=== PATIENT | male | born 1940 | race Caucasian/White ===

== ENCOUNTER 2016-05-23 20:40 | Emergency (ER) ==
--- NOTE | 2016-05-23 21:19 | PROVIDER DOCUMENTATION ---
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 Pt reports that he fell at home, but denies hitting his head, loc, sob, or any pain other than mild L hip tenderness. EMS reports that pt was able to stand and get onto the stretcher before being brought to ER. On exam, pt has left lower extremity weakness, but son-in-law reports pt has hx of L sided weakness. Pt also has hx of schizophrenia and a lazy eye. 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 worse with: exercise, movement Associated Symptoms: reports: joint pain (L hip), trouble walking. denies: chest pain, dizziness, fatigue, fever/chills, headaches, muscle aches, nausea, shortness of breath, syncope, vomiting, weakness Review of Systems - Adult - REVIEW OF SYSTEMS - ADULT Constitutional: denies: chills, fever, fatique Eyes: reports: no symptoms reported Ears, Nose, Mouth & Throat: reports: no symptoms reported Cardiovascular: reports: no symptoms reported Respiratory: reports: no symptoms reported Gastrointestinal: reports: no symptoms reported Genitourinary: reports: no symptoms reported Musculoskeletal: reports: joint pain (L hip), muscle aches (L hip), muscle weakness (L hip). denies: bone pain, back pain, frequent leg cramps, joint swelling, neck pain Integumentary: reports: no symptoms reported Neurological: reports: no symptoms reported Psychiatric: reports: no symptoms reported Endocrine: reports: no symptoms reported Hematologic/Lymphatic: reports: no symptoms reported Allergic/Immunologic: reports: no symptoms reported All Other Systems: Reviewed and Negative Past History - Adult - PAST MEDICAL HISTORY-ADULT Review of Records: reports: Nursing Assessment Review, Medications Reviewed - IMMUNIZATION STATUS Childhood Immunizations: See Nurse Assessment Flu Vaccine: See Nurse Assessment Physical Exam-General - PHYSICAL EXAM-ADULT Initial Vital Signs Reviewed: Yes - CONSTITUTIONAL General Appearance: appears well, alert, mild distress - HEAD, EARS, NOSE, MOUTH & THROAT HENMT: normocephalic/atraumatic, moist mucous membranes - NECK Neck: non-tender, full range of motion, supple - RESPIRATORY Respiratory: chest non-tender, lungs clear, normal breath sounds - CARDIOVASCULAR Cardiovascular: normal peripheral pulses, regular rate, rhythm - GASTROINTESTINAL (ABDOMEN) Abdominal Exam: normal bowel sounds, non tender, soft - LYMPHATIC Lymphatic: no adenopathy - MUSCULOSKELETAL Back Exam: no CVA tenderness, no vertebral tenderness Extremity: normal range of motion, non-tender, normal gait, other (3/5 L lower extremity motor strength; 5/5 R sided lower extremity motor strength) - SKIN Integumentary: normal color, normal turgor, warm/dry - NEUROLOGIC Neurologic: grossly normal, no motor/sensory deficits - PSYCHIATRIC Psych/Mental Status: normal mood/affect, normal thought content, normal thought process, oriented x 3 Progress - PLAN OF CARE/RESULTS Progress/Plan/Lab Results: Vital Signs - 24 hr 05/23/16 21:15 Temperature 97.6 F Pulse Rate 100 H Respiratory 21 Rate Blood Pressure 172/91 O2 Sat by Pulse 96 Oximetry Orders Category Date Time Status Cardiac Monitoring DIRECTED Care 05/23/16 20:56 Active Finger Stick Blood Sugar (ED) DIRECTED Care 05/23/16 20:56 Active Oxygen Therapy- ED Nursing DIRECTED Care 05/23/16 20:56 Active Saline Loc NOW Care 05/23/16 20:56 Active CHEST-2 VIEWS [RAD] Stat Exams 05/23/16 20:58 Taken HEAD/C-SPINE W/O CONTRAST [CT] Stat Exams 05/23/16 20:57 Taken PELVIS [RAD] Stat Exams 05/23/16 20:57 Taken ALCOHOL BLOOD Stat Lab 05/23/16 20:01 Completed CBC WITH ELECTRONIC DIFF [HEME] Stat Lab 05/23/16 20:01 Completed COMPREHENSIVE METABOLIC PANEL [CHEM] Stat Lab 05/23/16 20:01 Completed LACTATE, PLASMA [CHEM] Stat Lab 05/23/16 20:01 Completed PROTIME WITH INR [COAG] Stat Lab 05/23/16 20:01 Completed PTT [COAG] Stat Lab 05/23/16 20:01 Completed TROPONIN T Stat Lab 05/23/16 20:01 Completed URINALYSIS W/POSS RFLX CULT [URINALYSIS] Stat Lab 05/23/16 20:56 Uncollected URINE DRUG SCREEN Stat Lab 05/23/16 20:56 Uncollected Pulse Oximetry Stat Oth 05/23/16 20:56 Active EKG [EKG] Stat Ther 05/23/16 20:56 Ordered Laboratory Tests 05/23/16 05/23/16 05/23/16 20:01 20:01 20:01 WBC 9.09 RBC 4.43 L Hgb 14.5 Hct 40.4 L MCV 91.2 MCH 32.7 H MCHC 35.9 RDW Std Deviation 13.1 Plt Count 251 MPV 10.3 Immature Gran % (Auto) 0.0 Neut % (Auto) 81.9 H Lymph % (Auto) 4.7 L [place] % (Auto) 9.5 H Eos % (Auto) 3.3 Baso % (Auto) 0.6 Immature Gran # (Auto) 0.00 Neut # (Auto) 7.45 H Lymph # (Auto) 0.43 L [place] # (Auto) 0.86 H Eos # (Auto) 0.30 Baso # (Auto) 0.05 PT INR PTT (Actin FS) Sodium 136 Potassium 3.6 Chloride 98 Carbon Dioxide 24 L Anion Gap 14 BUN 17 Creatinine 1.2 Estimated GFR/1.73 m2 59 BUN/Creatinine Ratio 14 Glucose 109 H Calculated Osmolality 274 Calcium 9.2 Total Bilirubin 0.36 AST 27 ALT 20 Alkaline Phosphatase 70 Troponin T Total Protein 7.2 Albumin 4.1 Globulin 3.1 Albumin/Globulin Ratio 1.3 Plasma Lactate Plasma/Serum Ethyl Alc 05/23/16 05/23/16 05/23/16 20:01 20:01 20:01 WBC RBC Hgb Hct MCV MCH MCHC RDW Std Deviation Plt Count MPV Immature Gran % (Auto) Neut % (Auto) Lymph % (Auto) [place] % (Auto) Eos % (Auto) Baso % (Auto) Immature Gran # (Auto) Neut # (Auto) Lymph # (Auto) [place] # (Auto) Eos # (Auto) Baso # (Auto) PT 10.8 INR 1.02 PTT (Actin FS) 27.4 Sodium Potassium Chloride Carbon Dioxide Anion Gap BUN Creatinine Estimated GFR/1.73 m2 BUN/Creatinine Ratio Glucose Calculated Osmolality Calcium Total Bilirubin AST ALT Alkaline Phosphatase Troponin T < 0.010 Total Protein Albumin Globulin Albumin/Globulin Ratio Plasma Lactate 1.0 Plasma/Serum Ethyl Alc Laboratory Tests 05/23/16 05/23/16 05/23/16 20:01 20:01 20:01 WBC 9.09 RBC 4.43 L Hgb 14.5 Hct 40.4 L MCV 91.2 MCH 32.7 H MCHC 35.9 RDW Std Deviation 13.1 Plt Count 251 MPV 10.3 Immature Gran % (Auto) 0.0 Neut % (Auto) 81.9 H Lymph % (Auto) 4.7 L [place] % (Auto) 9.5 H Eos % (Auto) 3.3 Baso % (Auto) 0.6 Immature Gran # (Auto) 0.00 Neut # (Auto) 7.45 H Lymph # (Auto) 0.43 L [place] # (Auto) 0.86 H Eos # (Auto) 0.30 Baso # (Auto) 0.05 PT INR PTT (Actin FS) Sodium 136 Potassium 3.6 Chloride 98 Carbon Dioxide 24 L Anion Gap 14 BUN 17 Creatinine 1.2 Estimated GFR/1.73 m2 59 BUN/Creatinine Ratio 14 Glucose 109 H Calculated Osmolality 274 Calcium 9.2 Total Bilirubin 0.36 AST 27 ALT 20 Alkaline Phosphatase 70 Troponin T Total Protein 7.2 Albumin 4.1 Globulin 3.1 Albumin/Globulin Ratio 1.3 Plasma Lactate Urine Source Urine Color Urine Turbidity Urine pH Ur Specific [place]ad[place] Urine Protein Ur Glucose (Stick) Ur Ketones (Stick) Urine Blood Urine Nitrite Urine Bilirubin Urobilinogen Dipstick Urine Leukocytes Urine WBC (Auto) Urine RBC (Auto) U Epithel Cells (Auto) Urine Bacteria (Auto) Urine Opiates Screen Ur Oxycodone Screen Ur Methadone, Qual Ur Barbiturates Screen Ur Phencyclidine Scrn Ur Amphetamines Screen U Benzodiazepines Scrn Urine Cocaine Screen U Cannabinoids Screen Plasma/Serum Ethyl Alc 05/23/16 05/23/16 05/23/16 20:01 20:01 20:01 WBC RBC Hgb Hct MCV MCH MCHC RDW Std Deviation Plt Count MPV Immature Gran % (Auto) Neut % (Auto) Lymph % (Auto) [place] % (Auto) Eos % (Auto) Baso % (Auto) Immature Gran # (Auto) Neut # (Auto) Lymph # (Auto) [place] # (Auto) Eos # (Auto) Baso # (Auto) PT 10.8 INR 1.02 PTT (Actin FS) 27.4 Sodium Potassium Chloride Carbon Dioxide Anion Gap BUN Creatinine Estimated GFR/1.73 m2 BUN/Creatinine Ratio Glucose Calculated Osmolality Calcium Total Bilirubin AST ALT Alkaline Phosphatase Troponin T < 0.010 Total Protein Albumin Globulin Albumin/Globulin Ratio Plasma Lactate 1.0 Urine Source Urine Color Urine Turbidity Urine pH Ur Specific [place] Urine Protein Ur Glucose (Stick) Ur Ketones (Stick) Urine Blood Urine Nitrite Urine Bilirubin Urobilinogen Dipstick Urine Leukocytes Urine WBC (Auto) Urine RBC (Auto) U Epithel Cells (Auto) Urine Bacteria (Auto) Urine Opiates Screen Ur Oxycodone Screen Ur Methadone, Qual Ur Barbiturates Screen Ur Phencyclidine Scrn Ur Amphetamines Screen U Benzodiazepines Scrn Urine Cocaine Screen U Cannabinoids Screen Plasma/Serum Ethyl Alc 05/23/16 05/23/16 22:22 22:22 WBC RBC Hgb Hct MCV MCH MCHC RDW Std Deviation Plt Count MPV Immature Gran % (Auto) Neut % (Auto) Lymph % (Auto) [place] % (Auto) Eos % (Auto) Baso % (Auto) Immature Gran # (Auto) Neut # (Auto) Lymph # (Auto) [place] # (Auto) Eos # (Auto) Baso # (Auto) PT INR PTT (Actin FS) Sodium Potassium Chloride Carbon Dioxide Anion Gap BUN Creatinine Estimated GFR/1.73 m2 BUN/Creatinine Ratio Glucose Calculated Osmolality Calcium Total Bilirubin AST ALT Alkaline Phosphatase Troponin T Total Protein Albumin Globulin Albumin/Globulin Ratio Plasma Lactate Urine Source CLEAN CATCH Urine Color YELLOW Urine Turbidity CLEAR Urine pH 7.0 Ur Specific W[place]ley 1.007 Urine Protein NEGATIVE Ur Glucose (Stick) NEGATIVE Ur Ketones (Stick) NEGATIVE Urine Blood NEGATIVE Urine Nitrite NEGATIVE Urine Bilirubin NEGATIVE Urobilinogen Dipstick NORMAL Urine Leukocytes NEGATIVE Urine WBC (Auto) <10 Urine RBC (Auto) <10 U Epithel Cells (Auto) <10 Urine Bacteria (Auto) NEGATIVE Urine Opiates Screen NONE DETECTED Ur Oxycodone Screen NONE DETECTED Ur Methadone, Qual NONE DETECTED Ur Barbiturates Screen NONE DETECTED Ur Phencyclidine Scrn NONE DETECTED Ur Amphetamines Screen NONE DETECTED U Benzodiazepines Scrn NONE DETECTED Urine Cocaine Screen NONE DETECTED U Cannabinoids Screen NONE DETECTED Plasma/Serum Ethyl Alc - XRAY 1 XRAY: Bilateral XRAY Study: Chest Impression: See EMR Report XRAY Interpretation: No acute findings per Dr. Turner - CT/MRI 1 CT Study: Pelvis (Negative) Impression: See EMR Report CT Results: Negative per Dr. Turner 2 CT Study: Cervical Spine, Head Impression: See EMR Report (Head: mild chronic-appearing microvascular ischemic changes; No evidence on intracranial injury. Cspin: Substantial degenerative disease; No fx, no subluxation) CT Results: See report Departure - Departure Time of Disposition Order: 22:20 DIAGNOSIS: Chronic mental illness Fall Qualifiers: Encounter type: sequela Qualified Code(s): W19.XXXS - Unspecified fall, sequela Disposition: HOME 01 Certified Medical Emergency: Emergent Condition: Stable Additional Instructions: Follow up with your primary care doctor. ED Follow Up Instructions: You have been treated by a care provider in the Emergency Department. These instructions are being provided to you so you can have an understanding of how to care for yourself upon discharge. Upon discharge from the Emergency Department, you are responsible for making arrangements for follow-up care by a physician of your choice. Take all prescribed medications as directed. Return to the Emergency Department immediately for any new or worsening symptoms. You may call the Physician Referral phone number at [phone] to obtain a list of Physicians who are taking new patients. Referrals: None,PCP [Primary Care Provider] - Attestation - Scribe Verification/Attestation Scribe:: Reginald Pierre Acting as Scribe for:: Gregory Turner Scribe documention review:: This chart was documented by a scribe and accurately reflects the service the provider performed and the decisions made by the provider.
[2016-05-23 21:48] LABS: MANUAL DIFF NEEDED? NO
[2016-05-23 21:53] LABS: BASO% 0.6 % (0.0-0.8); EOS% 3.3 % (0.0-10.0); HEMATOCRIT 40.4 % (42.0-52.0); HEMOGLOBIN 14.5 g/dL (14.0-18.0); LYMPH# 0.43 X1000 (1.2-3.4); LYMPH% 4.7 % (20.5-51.1); MCH 32.7 PG (27-31); MCHC 35.9 g/dL (33-37); MCV 91.2 FL (81-99); MONO# 0.86 X1000 (0.11-0.59); MONO% 9.5 % (1.7-9.3); MPV 10.3 FL (7.4-10.4); NEUT% 81.9 % (42.2-75.2); PLT 251 X1000 (130-400); RBC 4.43 XMIL (4.7-6.1)
[2016-05-23 21:59] LABS: INR 1.02; PROTIME 10.8 Seconds (9.2-11.7); PTT 27.4 Seconds (22.0-36.0)
[2016-05-23 22:13] LABS: ALBUMIN 4.1 g/dL (3.5-5.0); CALCIUM 9.2 mg/dL (8.8-10.2); POTASSIUM 3.6 mmol/L (3.5-5.1); TOTAL BILIRUBIN 0.36 mg/dL (0.20-1.00); TOTAL PROTEIN 7.2 g/dL (6.3-8.3)
[2016-05-23 22:28] LABS: URINE CULTURE NEEDED? NO; URINE MICRO REVIEW NEEDED? NO; URINE SOURCE CLEAN CATCH
[2016-05-23 22:34] LABS: BILIRUBIN URINE NEGATIVE (NEGATIVE); BLOOD URINE NEGATIVE (NEGATIVE); COLOR YELLOW; GLUCOSE URINE NEGATIVE (NEGATIVE); LEUKOCYTES URINE NEGATIVE (NEGATIVE); NITRITE URINE NEGATIVE (NEGATIVE); PROTEIN URINE NEGATIVE (NEGATIVE); SP GRAVITY URINE 1.007; TURBIDITY URINE CLEAR (CLEAR); UR EPITHELIAL CELLS <10 /HPF (<10); URINE BACTERIA NEGATIVE /HPF; URINE RBC <10 /HPF (<10); URINE WBC <10 /HPF (<10); UROBILINOGEN URINE NORMAL (NORMAL)
[2016-05-23 22:41] LABS: UR AMPHETAMINES QUAL NONE DETECTED (NONE DETECT); UR BARBITUATES QUAL NONE DETECTED (NONE DETECT); UR BENZODIAZEPIN QUAL NONE DETECTED (NONE DETECT); UR CANNABINOIDS QUAL NONE DETECTED (NONE DETECT); UR COCAINE QUAL NONE DETECTED (NONE DETECT); UR METHADONE QUAL NONE DETECTED (NONE DETECT); UR OPIATES QUAL NONE DETECTED (NONE DETECT); UR OXYCODONE QUAL NONE DETECTED (NONE DETECT); UR PCP QUAL NONE DETECTED (NONE DETECT)
[2016-05-23 23:11] VITALS: BP 176/95
--- NOTE | 2016-05-24 00:27 | Diag Imaging Result Document ---
PROCEDURE NAME: HEAD/C-SPINE W/O CONTRAST - 05/23/2016 CT BRAIN AND CERVICAL SPINE WITHOUT: TECHNIQUE: Dose reduction technique not used. FINDINGS: No parenchymal hemorrhage. No epidural or subdural hematoma. No subarachnoid hemorrhage. No skull fracture. There are chronic microvascular ischemic changes. No mass identified on this noncontrasted exam. No sinus opacification. No air-fluid levels. IMPRESSION: 1. No hemorrhage. No injury. 2. Chronic microvascular ischemic changes. CT CERVICAL SPINE WITHOUT: FINDINGS: Moderate degenerative changes in the mid and lower cervical spine. These are most pronounced from C4 to the top of C7. No precervical soft tissue swelling. No subluxation. No fracture. IMPRESSION: 1. No acute bony injury. 2. Moderate degenerative changes. A preliminary report was given at 9:48 p.m.
--- NOTE | 2016-05-24 06:58 | Diag Imaging Result Document ---
PROCEDURE NAME: CHEST-2 VIEWS - 05/23/2016 FRONTAL AND LATERAL CHEST, TWO VIEWS: FINDINGS: The lungs are well expanded. No contusions or pneumothoraces. The mediastinum is not widened. No pleural effusions. No compressed vertebra. The heart is not enlarged. IMPRESSION: I do not identify an injury.
--- NOTE | 2016-05-24 07:38 | Diag Imaging Result Document ---
PROCEDURE NAME: PELVIS - 05/23/2016 PELVIS, SINGLE VIEW: FINDINGS: No fracture. No dislocation. IMPRESSION: No acute bony injury.
== END 2016-05-23 23:10 | disposition home or self-care (01) ==
LOC: EDBD → ED 20:40
DX: F99 Mental disorder, not otherwise specified (principal); R94.09 Abnormal results of other function studies of central nervous system; M47.9 Spondylosis, unspecified; M25.552 Pain in left hip; M62.81 Muscle weakness (generalized); R26.2 Difficulty in walking, not elsewhere classified; M79.1 Myalgia; F20.9 Schizophrenia, unspecified; Z79.899 Other long term (current) drug therapy
CPT/HCPCS: 70450; 71020; 72125; 72170; 80053; 81001; 82948; 83605; 84484; 85025; 85610; 85730; 93005; G0480

== ENCOUNTER 2016-09-10 14:18 | Inpatient (IN) ==
[2016-09-10] MEDS ORDERED: TYLENOL PO PRN (18:21)
[2016-09-10] MEDS: D5 1/2 NS + KCL 10 MEQ 1,000 ML IV SCH (20:00)
--- NOTE | 2016-09-10 20:19 | HISTORY AND PHYSICAL ---
HISTORY OF PRESENT ILLNESS: Mr. 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 He was taken care of by his sister who ended up in a long-term. He is now taken care of by a nephew. Mr. Barraza had has not been doing well. His confusion is worse. He is having frequent falls at home. He has been bruising badly. He needs 24 hour attention at home which they cannot give. The family says he is falling at least 3-4 times a day. Hence he is admitted for further management. Other details of personal, past, and family history reveals prostate carcinoma for which he had surgery by Dr. Mcnally and he is actively followed by Dr. Mcnally. REVIEW OF SYSTEMS: Unavailable. MEDICATIONS: Flomax 0.4 mg daily, naproxen 440 mg twice a day, and a multivitamin. PHYSICAL EXAMINATION: VITAL SIGNS: Temperature normal, pulse 78 per minute, respiratory rate 18 per minute, blood pressure 187/83. HEENT: Head normocephalic. PERRLA. Fundus examination could not be done. ENT examination unremarkable. NECK: Supple. JVP normal. There is no evidence of lymphadenopathy or thyroid enlargement. GENERAL: No evidence of pedal edema, calf tenderness, anemia, cyanosis or clubbing. VASCULAR: Pedal pulses are well felt. BREASTS: Normal. CHEST: Normal on inspection. LUNGS: Clear on auscultation. PMI in the normal position. HEART: Sounds normal. No murmur, gallop or rub noted. ABDOMEN: Nondistended. Hernial orifices normal. No guarding, rigidity, free fluid, masses, or organomegaly. Bowel sounds normal. RECTAL EXAMINATION: Deferred. CENTRAL NERVOUS SYSTEM: Higher functions. The patient gets confused and disoriented. Cranial nerves are grossly normal. Motor and sensory examination are unremarkable except for hypotonia. Deep tendon reflexes are sluggish. Plantars downgoing. Skull and spine examination normal for age. No cerebellar signs or signs of meningeal irritation. LOCOMOTOR EXAMINATION: Unremarkable except for pain with movements of both knees as well as movement of the lumbosacral spine is painful. SKIN EXAMINATION: Reveals multiple bruises. The presence of dehydration reveals loss of skin turgor and dryness of mucous membranes. ASSESSMENT AND PLAN: Dehydration, frequent falls, degenerative arthritis of both knees, mental retardation mild with some increasing dementia now. We will get a CT scan and keep him on telemetry. I am going to check his orthostatic hypotension. We will get regular blood work. cc: Darrius Coleman MD
--- NOTE | 2016-09-10 22:25 | Diag Imaging Result Document ---
PROCEDURE NAME: HEAD W/O CONTRAST - 09/10/2016 STUDY: CT brain without contrast. COMPARISON: Compared to 05/23/2016. No parenchymal hemorrhage. No epidural or subdural hematoma. No subarachnoid hemorrhage. No skull fracture. There are chronic microvascular ischemic changes. No hydrocephalus. No mass identified on this noncontrasted exam. No sinus opacification. IMPRESSION: 1. No hemorrhage. No injury. 2. Chronic microvascular ischemic changes. A preliminary report was given at 9:06 p.m.
[2016-09-10] MEDS: ALEVE PO PRN (22:59)
--- NOTE | 2016-09-11 06:51 | EKG Report ---
Test Performed on : 09/11/2016 06:24:34 AM Test Reason : CP Blood Pressure : / mmHG Vent. Rate : 073 BPM Atrial Rate : 073 BPM P-R Int : 150 ms QRS Dur : 128 ms QT Int : 404 ms P-R-T Axes : 055 057 049 degrees QTc Int : 445 ms Normal sinus rhythm. Right bundle branch block Abnormal ECG When compared with ECG of 08-SEP-2016 20:47, aberrant conduction. is no longer present Confirmed by Atif Holt MD ([id number]) on 09/12/2016 12:06:16 PM
[2016-09-11 07:25] LABS: MANUAL DIFF NEEDED? NO
[2016-09-11 07:34] LABS: BASO% 0.5 % (0.0-0.8); EOS% 10.6 % (0.0-10.0); HEMATOCRIT 41.7 % (42.0-52.0); HEMOGLOBIN 14.5 g/dL (14.0-18.0); LYMPH# 1.47 X1000 (1.2-3.4); LYMPH% 26.1 % (20.5-51.1); MCH 32.4 PG (27-31); MCHC 34.8 g/dL (33-37); MCV 93.1 FL (81-99); MONO# 0.59 X1000 (0.11-0.59); MONO% 10.5 % (1.7-9.3); MPV 10.3 FL (7.4-10.4); NEUT% 52.3 % (42.2-75.2); PLT 273 X1000 (130-400); RBC 4.48 XMIL (4.7-6.1)
[2016-09-11 07:43] LABS: AGAP 13; ALBUMIN 3.7 g/dL (3.5-5.0); ALKALINE PHOSPHATASE 58 U/L (32-122); BUN 18 mg/dL (8-22); CALCIUM 9.1 mg/dL (8.8-10.2); CHLORIDE 101 mmol/L (98-107); COSMO 279; GOT 24 U/L (10-34); GPT 15 U/L (10-44); SODIUM 139 mmol/L (136-145); TCO2 25 mmol/L (25-35); TOTAL BILIRUBIN 0.42 mg/dL (0.20-1.00); TOTAL PROTEIN 6.3 g/dL (6.3-8.3)
[2016-09-11] MEDS: D5 1/2 NS + KCL 10 MEQ 1,000 ML IV SCH ×2 (08:10→17:03)
--- NOTE | 2016-09-11 09:22 | PROGRESS NOTE ---
DATE: 09/11/2016 SUBJECTIVE: Mr. Barraza had at least 1 or 2 falls after he came here. His lungs are clear. Heart sounds are normal. His CT scan has been unremarkable. We are watching him for his vital signs and the blood pressure changes. He has been on olanzapine for a long time and I personally do not feel like olanzapine is doing it. We will continue to watch him on telemetry. cc: Darrius Coleman MD
[2016-09-11] MEDS: CENTRUM SILVER PO SCH (09:35)
[2016-09-11] MEDS: FLOMAX PO SCH (09:35)
--- NOTE | 2016-09-11 11:12 | Diag Imaging Result Document ---
PROCEDURE NAME: CHEST-2 VIEWS - 09/11/2016 FRONTAL AND LATERAL CHEST, TWO VIEWS: COMPARISON: 09/08/2016. FINDINGS: Poor inspiratory effort. The heart is not enlarged. The vessels are not distended. No pneumonia. No pleural effusions. IMPRESSION: No acute abnormality.
--- NOTE | 2016-09-11 14:24 | PROGRESS NOTE ---
DATE: 09/11/2016 Mr. Barraza, according to the family, has been having frequent falls. His dementia is increasing. He has developed some mental status changes and he gets upset with family members very easily, having temper tantrums, and he definitely seems to have mental status change with some confusion. We will watch him on telemetry. The CT scan has been negative. cc: Darrius Coleman MD
[2016-09-12] MEDS: D5 1/2 NS + KCL 10 MEQ 1,000 ML IV SCH ×3 (08:10→20:49)
[2016-09-12] MEDS ORDERED: CALMOSEPTINE OINTMENT TOP PRN (08:42)
--- NOTE | 2016-09-12 09:32 | PROGRESS NOTE ---
DATE: 09/12/2016 SUBJECTIVE: Mr. Barraza is in about the same general condition. His mental status is slowly improving. He is still slightly more confused, but compared to yesterday he is better. His dehydration is improving. Overall condition is unchanged. We will see if we can get him a position at rehab when he does good. We will repeat electrolytes tomorrow. cc: Darrius Coleman MD
[2016-09-12] MEDS: FLOMAX PO SCH (09:53)
[2016-09-12] MEDS: CENTRUM SILVER PO SCH (09:53)
[2016-09-12] MEDS: ALEVE PO PRN (22:33)
[2016-09-13] MEDS: D5 1/2 NS + KCL 10 MEQ 1,000 ML IV SCH ×2 (08:49→21:36)
[2016-09-13] MEDS: CENTRUM SILVER PO SCH (08:50)
[2016-09-13] MEDS: FLOMAX PO SCH (08:50)
--- NOTE | 2016-09-13 10:31 | PROGRESS NOTE ---
DATE: 09/13/2016 Mr. Barraza is doing somewhat better. His dehydration has cleared. His mental status is much better. Today he is somewhat more oriented. No orthostatic hypotension. Telemetry does not show any arrhythmias. We will transfer him to [facility] for rehab. cc: Darrius Coleman MD
--- NOTE | 2016-09-13 12:46 | DISCHARGE SUMMARY ---
ADMISSION DATE: 09/10/2016 DISCHARGE DATE: 09/13/2016 Mr. Barraza, who is a 76-year-old white gentleman, was admitted with changes in mental status, frequent falls, possible syncope. LABORATORY DATA: In the hospital, chest x-ray was unremarkable. EKG revealed a right bundle- branch block. Normal sinus rhythm. CT scan of the brain or the head was unremarkable. It showed microvascular changes, otherwise it was negative overall. His lab data in the hospital, CBC was unremarkable. Electrolytes are normal. BUN 18, creatinine 1.1 indicating dehydration. He did have some dehydration when he came in. He was given IV fluids. The liver enzymes are normal. COURSE IN THE HOSPITAL: He was kept on telemetry. We did not reveal any evidence of arrhythmias. We had him checked for orthostatic hypotension which he did not have much evidence of orthostatic hypotension. Vital signs are stable. He is doing better. [facility]. cc: Darrius Coleman MD
[2016-09-14] MEDS: FLOMAX PO SCH (08:42)
[2016-09-14] MEDS: CENTRUM SILVER PO SCH (08:42)
[2016-09-14] MEDS: D5 1/2 NS + KCL 10 MEQ 1,000 ML IV SCH ×3 (08:42→21:47)
--- NOTE | 2016-09-14 09:52 | PROGRESS NOTE ---
DATE: 09/14/2016 SUBJECTIVE: Mr. Barraza is doing fair. Mild epigastric discomfort. No nausea, vomiting. No high- grade fever or chills. The patient was supposed to go to rehab yesterday, but patient could not. The patient admitted with multiple falls. He does have mild mental retardation, history of prostate cancer. OBJECTIVE: Vital signs: Noted. Neck: Supple. No JVD. Lungs: Bibasilar crepitations. Heart: S1 and S2 heard. Abdomen: Soft. No distention. Bowel sounds present. Extremities: No cyanosis, clubbing. No acute DVT. ATOMIC SPECTROSCOPIST: Alert, awake, able to move all 4 limbs. CONSIDERATION/ASSESSMENT: 1. History of prostate cancer. 2. Clinical dehydration. 3. Osteoarthritis, both knees. 4. Mental retardation. 5. Dementia. PLAN: Overall patient is doing better. We will continue current treatment and close observation. Admission lab data noted. cc: MD Darrius Davis MD
[2016-09-15] MEDS: PRILOSEC PO SCH (05:59)
[2016-09-15 07:23] LABS: MANUAL DIFF NEEDED? NO
[2016-09-15 07:59] LABS: AGAP 12; ALBUMIN 3.8 g/dL (3.5-5.0); ALKALINE PHOSPHATASE 71 U/L (32-122); BUN 12 mg/dL (8-22); CALCIUM 9.2 mg/dL (8.8-10.2); CHLORIDE 103 mmol/L (98-107); COSMO 274; GOT 22 U/L (10-34); GPT 16 U/L (10-44); SODIUM 137 mmol/L (136-145); TCO2 22 mmol/L (25-35); TOTAL BILIRUBIN 0.51 mg/dL (0.20-1.00); TOTAL PROTEIN 7.4 g/dL (6.3-8.3)
[2016-09-15 08:00] LABS: BASO% 0.5 % (0.0-0.8); EOS# 0.43 X1000 (0.0-0.7); EOS% 4.6 % (0.0-10.0); HEMATOCRIT 42.7 % (42.0-52.0); HEMOGLOBIN 14.9 g/dL (14.0-18.0); IMM GRAN# 0.02 X1000 (0.0-0.04); IMM GRAN% 0.2 % (0.0-0.5); LYMPH# 1.96 X1000 (1.2-3.4); LYMPH% 20.8 % (20.5-51.1); MCHC 34.9 g/dL (33-37); MCV 91.8 FL (81-99); MONO# 0.93 X1000 (0.11-0.59); MONO% 9.9 % (1.7-9.3); MPV 10.3 FL (7.4-10.4); PLT 279 X1000 (130-400); RBC 4.65 XMIL (4.7-6.1)
--- NOTE | 2016-09-15 09:17 | PROGRESS NOTE ---
DATE: 09/15/2016 SUBJECTIVE: Mr. Barraza is doing well. He denied any high-grade fever or chills. Needs minimal assistance in feeding. No nausea or vomiting. Mild epigastric discomfort. No diarrhea. OBJECTIVE: Vital Signs: Noted which are stable. Lungs: Bibasilar crepitations. Heart: S1 and S2 heard. Abdomen: Soft. Mild epigastric tenderness. No guarding or rigidity. Extremities: No cyanosis, clubbing. No acute DVT. HANDLE ASSEMBLER: Alert, awake. Able to move all 4 limbs. CONSIDERATION: 1. I entertained possibility of gastritis. Started patient on Prilosec. 2. Osteoarthritis. 3. History of prostate cancer. 4. Clinical dehydration. PLAN: Labs and medication noted. We will continue current treatment. Lab data done today fairly benign. Patient is waiting for rehab placement tomorrow. cc: MD Darrius Davis MD
[2016-09-15] MEDS: D5 1/2 NS + KCL 10 MEQ 1,000 ML IV SCH ×2 (10:36→22:38)
[2016-09-15] MEDS: FLOMAX PO SCH (10:36)
[2016-09-15] MEDS: CENTRUM SILVER PO SCH (10:36)
[2016-09-15] MEDS: ALEVE PO PRN (12:55)
[2016-09-16] MEDS: PRILOSEC PO SCH (06:41)
[2016-09-16] MEDS: FLOMAX PO SCH (08:32)
[2016-09-16] MEDS: CENTRUM SILVER PO SCH (08:32)
--- NOTE | 2016-09-16 09:39 | PROGRESS NOTE ---
DATE: 09/16/2016 Mr. Barraza is doing better. His lungs are clear. Heart sounds are normal. His dehydration is better. He can be discharged today to [facility]. cc: Darrius Coleman MD
[2016-09-16] MEDS: D5 1/2 NS + KCL 10 MEQ 1,000 ML IV SCH (10:55)
--- NOTE | 2016-09-16 15:51 | DISCHARGE SUMMARY ---
ADMISSION DATE: 09/10/2016 DISCHARGE DATE: ADDENDUM REPORT: Mr. Barraza is doing better. He is getting physical therapy. His dehydration has cleared up. He did not have a bed on 09/13/2016. He can go to [facility] today if there is a bed available. cc: Darrius Coleman MD
[2016-09-17] MEDS: D5 1/2 NS + KCL 10 MEQ 1,000 ML IV SCH ×2 (03:45→12:53)
[2016-09-17] MEDS: PRILOSEC PO SCH (06:01)
[2016-09-17] MEDS: FLOMAX PO SCH (08:18)
[2016-09-17] MEDS: CENTRUM SILVER PO SCH (08:18)
[2016-09-17] MEDS ORDERED: PRINIVIL PO SCH (09:00)
--- NOTE | 2016-09-17 09:22 | PROGRESS NOTE ---
DATE: 09/17/2016 Mr. Barraza is a 76-year-old, white gentleman. He gets confused at times at night. He pulled out his IVs. He has a diagnosis of chronic schizophrenia for which he was on Zyprexa at 10 mg which we have cut down to 5. Overall condition is otherwise unchanged. -6 cc: Darrius Coleman MD
[2016-09-17] MEDS: ALEVE PO PRN ×2 (10:17→17:48)
--- NOTE | 2016-09-17 13:14 | DISCHARGE SUMMARY ---
ADMISSION DATE: 09/10/2016 DISCHARGE DATE: 09/17/2016 ADDENDUM REPORT Mr. Barraza has admitting diagnosis of chronic schizophrenia for which he has been taking Zyprexa. We will put him on Zyprexa 5 mg at bedtime and [facility]. cc: Darrius Coleman MD
[2016-09-17 14:52] VITALS: BP 140/80
== END 2016-09-17 17:40 ==
LOC: DIRADM 14:18 → 3N 16:10
PROVIDERS: ADMIT Internal Medicine; ATTEND Internal Medicine